=== PATIENT | male | born 1950 | race Caucasian/White ===

== ENCOUNTER 2019-03-11 05:50 | Day surgery (SDC) | payer MEDICARE, BC ==
[~2019-03-11] VITALS: Ht 177.8 cm; Wt 101.2 kg
[~2019-03-11 05:50] MED LIST: LISI-334 PO; NAPR220T70 PO; PIOG1TAB24 PO; SIMV20TA3 PO; SITA100T PO
[2019-03-11] MEDS ORDERED: INSULIN LISPRO 100 UNIT/ML 3ML VIAL for OP,RR ONLY. SQ PRN (06:30)
[2019-03-11] MEDS ORDERED: IV RINGERS,LACTATED 1000ML 1,000 ML IV SCH (07:00)
[2019-03-11] MEDS ORDERED: HYDROmorphone 2 MG/ML VIAL IV PRN (07:00)
[2019-03-11] MEDS ORDERED: ONDANSETRON PF 4 MG/2 ML VIAL. IV PRN (07:00)
[2019-03-11] MEDS ORDERED: MORPHINE SULFATE 2 MG/ML VIAL. IV PRN (07:00)
[2019-03-11] MEDS ORDERED: PROCHLORPERAZINE 10 MG/2 ML VIAL. IV PRN (07:00)
[2019-03-11] MEDS ORDERED: fentaNYL PF VIAL 100 MCG/2 ML VIAL IV PRN ×2 (07:00)
[2019-03-11] MEDS ORDERED: LIDOCAINE 1% 20 ML VIAL. ONE (07:08)
[2019-03-11] MEDS ORDERED: BUPIVACAINE MPF 0.5% 30 ML VIAL. ONE (07:08)
[2019-03-11] MEDS ORDERED: LIDOCAINE 1% PF 5 ML VIAL. ONE ×2 (07:09→07:11)
[2019-03-11] MEDS ORDERED: 0.9 % SODIUM CHLORIDE 20 ML VIAL. IJ ONE (07:11)
[2019-03-11] MEDS ORDERED: MIDAZOLAM HCL/PF 2 MG/2 ML VIAL. ONE (07:11)
--- NOTE | 2019-03-11 07:32 | DISCH ---
DISCHARGE INSTRUCTIONS Condition on Discharge Condition on Discharge: Stable Activity After Discharge Activity Instructions for Disc: Other ROM activity Other activity instructions: wiggle fingers Bathing Instructions: Shower-keep dressing dry Lifting Instructions after Dis: No heavy lifting, No pulling or pushing Weight Bearing Status after Di: As tolerated Diet after Discharge Diet after Discharge: Regular Wound Incision Care Wound/Incision Care: Ice to area for comfort, Keep wound/cast CDI, Keep wound elevated, Change dressing Other wound/incision instructi: ok to chagne dressing after 2 days Contacting the DRPilar after DC Call your doctor for: Concerns you may have Treatment/Equipment after DC Adaptive Equipment Issued: None ROBERTO CONNELL II, MD Mar 11, 2019 07:32
[2019-03-11] MEDS ORDERED: fentaNYL PF VIAL 100 MCG/2 ML VIAL ONE (07:38)
[2019-03-11] MEDS ORDERED: PROPOFOL 50 ML IV ONE (08:02)
[2019-03-11 08:35] VITALS: BP 115/73
--- NOTE | 2019-03-11 08:35 | PDOC4 ---
Operative Note Operative Note Date of procedure: 03/11/2019 Surgeon: Randy Connell Asst.: Heather Bruan, certified shorthand reporter Preoperative diagnosis: Right wrist volar ganglion cyst Postoperative diagnosis: Same Procedure performed: Right volar ganglion cyst excision Anesthesia: Jones block plus sedation Tourniquet time: 32 minutes Blood loss: 5 mL Findings: Simple appearing ganglion cyst Specimens: Cyst sent to pathology Complications: None Reason for procedure: Patient is a very pleasant 68-year-old gentleman with pain and dysfunction in his right hand without any significant paresthesias that has been getting worse over the past several months. Please see my outpatient consult note for further details. We had a discussion of the risks, benefits, and alternatives and he wished to proceed with surgery. Description of procedure: Patient was greeted in the preoperative area by myself for the correct extremity was verified and marked. He was then taken back to the operative suite, his antibiotics were started as he was brought back. Once in the operating room, he was transferred gently supine to the operating room table and secured to the bed and the hand table attachment was secured to the operating room table. He had placement of a Jones block by the anesthesiology team once he was brought back to the operating room. After this, the right upper extremity was prepped and draped in our usual sterile fashion we conducted our standard preoperative timeout. After this, I ruby a line, angle that his wrist crease, centered over the cyst and incised skin with a scalpel. I dissected subcutaneous tissue with tenotomies and used bipolar cautery for hemostasis as needed. I continued dissecting until identified the cyst proximally, I continued to work around and freed up from the surrounding soft tissue using my tenotomies. Venous bleeders were cauterized with bipolar cautery as a were encountered. As I was working more distally along the margins of the cyst, there was abundant fibrotic tissue proximally which took a little bit more careful dissection in time but I was able to free up the cyst en bloc. Identified the stalk, he was tracking down to the radial scaphoid joint and I removed the cyst and sent for specimen and then excised the tract. I then used bipolar cautery to create some fibrotic tissue and seal it off. After this, the tourniquet was let down and venous oozing was cauterized at the skin edges. The wound bed itself was fairly dry. Wound was thoroughly irrigated irrigated out with sterile saline. His hand demonstrated a brisk return of blood flow and brisk capillary refill. I then closed subcutaneous tissue with inverted interrupted 2-0 Vicryl followed by 3-0 nylon in a mattress fashion for his skin. The arm and hand were cleansed and dried. I injected local anesthetic mixture into the paula-incisional soft tissues ensuring extravascular placement. After this, Xeroform, gauze and a sterile soft bulky dressing was applied and secured with Rey wrap. He was awaken ed from his sedation and transferred gently supine to the recovery room cart and taken to the PACU in a stable and extubated condition. Postoperative plan is to discharge him home. Wound care instructions and activities were discussed with his son as well as given and written form. We will see him back in 2 weeks, sooner should a problem arise RANDY CONNELL II, MD Mar 11, 2019 08:35
[2019-03-11] MEDS ORDERED: HYDROcodone/APAP 5/325MG 1 TAB TABLET PO ONE (09:00)
--- NOTE | 2019-03-17 16:06 | PATHOLOGY ---
[facility] Accession Number: [id number] . 01 Material submitted: . wrist - GANGLION CYST RIGHT WRIST. Modifiers: right . 01 Clinical history: . Ganglion cyst right wrist . 02 Diagnosis: Soft tissue, right wrist, excision: - Ganglion cyst. (SKM:natali; 03/17/2019) QMS 03/17/2019 0835 Local . 02 Electronically signed: . Siddharth Thurman MD, Pathologist NPI- [id number] . 01 Gross description: . Received in formalin labeled "Giancarlo Alegre Jr., ganglion cyst right wrist," is an intact light-yellow cyst measuring 1.7 x 0.8 x 0.9 cm, filled with light-hamilton, viscous material. The margin is inked and the specimen is submitted representatively in cassette A1. (TSD; 03/11/2019) . After initial microscopic examination, the remainder of the specimen is submitted in cassette A2. (CAA; 03/13/2019) TOB/TOB 03/13/2019 1352 Local . 02 Pathologist provided ICD-10: M67.431 . 02 CPT . 305579 Specimen Comment: A courtesy copy of this report has been sent to Specimen Comment: [phone], . Specimen Comment: Report sent to / DR HYLTON Performed at: 01 [facility] [address] [facility] [address], [place] [id number] MD Levon Camarena MD Phone: [phone] Performed at: 02 [facility] [address] [id number] MD Emmanuel Bianchi MD Phone: [phone]
== END 2019-03-11 09:10 | disposition home or self-care (01) ==
LOC: SURG 05:50
PROVIDERS: ATTEND Orthopaedic Surgery Sports Medicine
DX: M67.431 Ganglion, right wrist (principal); E11.9 Type 2 diabetes mellitus without complications; E78.5 Hyperlipidemia, unspecified; F17.210 Nicotine dependence, cigarettes, uncomplicated; E66.9 Obesity, unspecified; Z68.32 Body mass index [BMI] 32.0-32.9, adult; Z98.42 Cataract extraction status, left eye; Z98.41 Cataract extraction status, right eye; Z79.899 Other long term (current) drug therapy; Z79.84 Long term (current) use of oral hypoglycemic drugs; Z96.1 Presence of intraocular lens
CPT/HCPCS: 25111; 82962; A7015; J2250; J2704; J3010; J3490; A4461